=== PATIENT | male | born 1995 | race Two or more races ===

== ENCOUNTER 2019-05-11 09:07 | Emergency (ER) | payer SELFPAY ==
[~2019-05-11] VITALS: Ht 180.3 cm; Wt 127.0 kg
[2019-05-11 09:16] VITALS: BP 132/84
[2019-05-11] MEDS ORDERED: methylPREDNISolone SOD SUCC 125 MG/2 ML VL IM ONE (10:15)
[2019-05-11] MEDS ORDERED: cefTRIAXone SOD 1,000 MG VL IM ONE (10:15)
== END 2019-05-11 10:38 | disposition home or self-care (01) ==
LOC: ER 09:11
DX: J03.90 Acute tonsillitis, unspecified (principal)
CPT/HCPCS: 96372; 99283; J0696; J2930

== ENCOUNTER 2019-05-31 17:57 | Emergency (ER) | payer OTHER ==
[~2019-05-31] VITALS: Ht 180.3 cm; Wt 108.0 kg
[2019-05-31] MEDS ORDERED: FLUORESCEIN SOD 1 MG TEST STRIP EACHEYE ONE (20:00)
[2019-05-31 20:01] VITALS: BP 149/90
[2019-05-31] MEDS ORDERED: GENTAMICIN OPTH sol 0.3% 5ml EACHEYE ONE (21:00)
== END 2019-05-31 22:27 | disposition home or self-care (01) ==
LOC: ER 18:05
DX: T15.01XA Foreign body in cornea, right eye, initial encounter (principal); H16.001 Unspecified corneal ulcer, right eye; X58.XXXA Exposure to other specified factors, initial encounter; Y93.89 Activity, other specified; Y92.69 Other specified industrial and construction area as the place of occurrence of the external cause; Y99.8 Other external cause status
CPT/HCPCS: 65222